=== PATIENT | female | born 1995 | race Two or more races ===

== ENCOUNTER 2017-10-29 13:52 | Emergency (ER) | payer OTHER ==
[~2017-10-29] VITALS: Ht 154.9 cm; Wt 72.6 kg
[~2017-10-29 13:52] MED LIST: AMOX1TAB12 PO; BACTROBAN22 GM; FIORICET 50-321 EACH PO; INTESTINEX680 MG PO; KEFLEX500 MG PO
== END 2017-10-29 20:41 | disposition home or self-care (01) ==
LOC: ER 13:52
DX: R51 Headache (principal); J32.8 Other chronic sinusitis; R42 Dizziness and giddiness

== ENCOUNTER 2018-04-18 10:34 | Emergency (ER) | payer OTHER ==
[~2018-04-18] VITALS: Ht 154.9 cm; Wt 72.6 kg
== END 2018-04-18 13:13 | disposition home or self-care (01) ==
LOC: ER 10:34
DX: R42 Dizziness and giddiness (principal); J32.2 Chronic ethmoidal sinusitis

== ENCOUNTER 2018-06-25 21:08 | Emergency (ER) | payer OTHER ==
[~2018-06-25] VITALS: Ht 154.9 cm; Wt 71.2 kg
== END 2018-06-25 23:55 | disposition home or self-care (01) ==
LOC: ER 21:08
DX: K52.9 Noninfective gastroenteritis and colitis, unspecified (principal); M54.5 Low back pain